=== PATIENT | male | born 1955 | race Caucasian/White ===

== ENCOUNTER 2020-08-06 13:02 | Emergency (ER) | payer MEDICAID ==
[~2020-08-06] VITALS: Ht 170.2 cm; Wt 68.0 kg
[2020-08-06] MEDS ORDERED: NORVASC 2.5 MG2.5 M1 PO (13:17)
[2020-08-06] MEDS ORDERED: ASA81BEC PO (13:17)
[2020-08-06] MEDS ORDERED: PLAVIX 75 MG TA75 MG PO (13:18)
[2020-08-06] MEDS ORDERED: FUROSEMIDE 40 M40 MG PO (13:18)
[2020-08-06] MEDS ORDERED: ATORVASTATIN CA80 MG PO (13:18)
[2020-08-06] MEDS ORDERED: CARVEDILOL12.5 MG PO (13:18)
[2020-08-06] MEDS ORDERED: COZAAR 25 MG TA25 M1 PO (13:19)
[2020-08-06] MEDS ORDERED: MIRALAX119 GM PO (13:20)
[2020-08-06] MEDS ORDERED: FLOMAX0.4 MG PO (13:20)
[2020-08-06] MEDS ORDERED: PROAIR HFA8.5 GM INH (13:21)
[2020-08-06] MEDS ORDERED: NORCO 5-325 TA1 EAC2 PO (13:54)
[2020-08-06] MEDS ORDERED: PREDNISONE50 MG PO (13:54)
[2020-08-06] MEDS ORDERED: FLEXERIL PO (13:54)
[2020-08-06 14:20] VITALS: BP 143/46
== END 2020-08-06 14:23 ==
LOC: M.ERS 13:02
DX: M54.31 Sciatica, right side (principal)

== ENCOUNTER 2020-08-10 17:11 | Emergency (ER) | payer MEDICAID ==
[~2020-08-10] VITALS: Ht 167.6 cm; Wt 70.3 kg
[~2020-08-10 17:11] MED LIST: ASA81BEC PO; ATORVASTATIN CA80 MG PO; CARVEDILOL12.5 MG PO; COZAAR 25 MG TA25 M1 PO; FLEXERIL PO; FLOMAX0.4 MG PO; FUROSEMIDE 40 M40 MG PO; MIRALAX119 GM PO; NORCO 5-325 TA1 EAC2 PO; NORVASC 2.5 MG2.5 M1 PO; PLAVIX 75 MG TA75 MG PO; PREDNISONE50 MG PO; PROAIR HFA8.5 GM INH
[2020-08-10] MEDS ORDERED: PREDNISONE 10 M10 MG PO (18:07)
[2020-08-10] MEDS ORDERED: FLEXERIL PO (18:07)
[2020-08-10 18:40] VITALS: BP 105/69
== END 2020-08-10 18:40 | disposition home or self-care (01) ==
LOC: M.ERS 17:11
DX: M54.31 Sciatica, right side (principal); Z79.82 Long term (current) use of aspirin; Z79.899 Other long term (current) drug therapy

== ENCOUNTER 2021-04-04 18:20 | Inpatient (IN) | payer MEDICAID ==
[~2021-04-04] VITALS: Ht 167.6 cm; Wt 70.3 kg
--- NOTE | ~2021-04-04 | PROC ---
[facility] [address] [place] [address] PROCEDURE REPORT Name: LUIS FERNANDO MAYS Room: [address] IN M.R.#: [id number] Admission: 04/04/21 Attend Phys: Alethea Roche Discharge: 04/09/21 Date of : 59 Report #: [id number] THIS REPORT FOR: cc: FAM - No family physician/PCP FAM - No family physician/PCP [facility],Medical Records Staff ~ For GI report, please see the Provation report in Perceptive 7 content. By: 1007Medical Records Staff RUTHIE /GRADY
[~2021-04-04 18:20] MED LIST changes: +PREDNISONE 10 M10 MG PO
[2021-04-04 19:37] VITALS: BP 146/83
[2021-04-04 20:29] LABS: ABSOLUTE BASOPHILS 0.1 thou/uL (0.0-0.2); ABSOLUTE EOSINOPHILS 0.2 thou/uL (0.0-0.7); ABSOLUTE MONOCYTES 0.5 thou/uL (0.0-1.2); ABSOLUTE NEUTROPHILS 3.9 thou/uL (1.6-8.1); BASOPHILS 2.6 %; EOSINOPHILS 3.4 %; HEMATOCRIT 26.6 % (42.0-52.0); HEMOGLOBIN 7.8 gm/dL (14.0-18.0); LYMPHOCYTES 16.8 %; MCH 19.7 pg (26.0-34.0); MCHC 29.3 g/dL (28.0-37.0); MCV 67.3 fL (80.0-100.0); MONOCYTES 8.6 %; MPV 6.8 fl. (7.2-11.1); NUCLEATED RBCS 0 /100WBC; PLATELET COUNT* 218 thou/uL (150-400); POLYS 68.6 %; RBC 3.95 mil/uL (4.50-6.00); RDW-CV 19.9 % (10.5-14.5); WBC 5.7 thou/uL (4.0-11.0)
[2021-04-04 20:45] LABS: ALBUMIN 4.3 g/dL (3.4-5.0); CALCIUM 8.5 mg/dL (8.5-10.1); CREATININE 1.9 mg/dL (0.6-1.3); POTASSIUM 3.8 mmol/L (3.5-5.1); TOTAL BILIRUBIN 0.3 mg/dL (<0.1-1.0); TOTAL PROTEIN 7.7 g/dL (6.4-8.2)
[2021-04-04 21:20] LABS: ANISOCYTOSIS 2+; HYPOCHROMASIA 2+; POIKILOCYTOSIS 1+; POLYCHROMASIA 1+
[2021-04-04 21:21] LABS: MICROCYTES 2+; OVALOCYTES 1+; SCHISTOCYTES 1+; TEARDROPS Occasional
[2021-04-04 21:37] LABS: APTT 26.2 Seconds (25.0-31.3); PROTIME 10.9 Seconds (9.20-11.50)
[2021-04-04 22:31] VITALS: BP 136/60
[2021-04-04 23:00] VITALS: BP 152/77
[2021-04-05 04:00] VITALS: BP 148/75
--- NOTE | 2021-04-05 06:57 | NUR ---
RECEIVED REPORT FROM ISABELL MCDERMOTT. PT TRANSFERRED TO 213. PT A&OX4. FORGETFUL. VSS. PHYSICAL ASSESSMENT COMPLETED AND CHARTED. PT COMPLAINED OF SOB/UNABLE TO TAKE DEEP BREATHS-PLACED ON O2 AT 2LNC. PT DENIES ANY PAIN. PT TRACING SR/PVC ON TELE. CALL LIGHT WITHIN REACH.
[2021-04-05 07:45] VITALS: BP 123/73
--- NOTE | 2021-04-05 10:07 | NUR ---
ASSUMED CARE OF PT AT 0730. PT RESTING IN BED WAITING FOR BREAKFAST. A&0X4, DENIES ANY PAIN OR SHORTNESS OF BREATH AT REST. TRACING SR ON THE SLOT SUPERVISOR. ON 2L NC SAT 99%. PT STATES HE HAS SHORTNESS OF BREATH WITH EXERTION. IVF. PT UP AD LORENE IN ROOM. HOME MEDICATIONS RESTARTED AND GIVEN PER EMAR. GI CONSULT IN PLACE FOR ANEMIA WORK UP. PT GOAL FOR TODAY IS GI CONSULT IN PLACE AND INCREASE ACTIVITY. AM ASSESSMENT CHARTED MEDICATIONS PER JAN. PT REPOSITIONS SELF. HOURLY ROUNDING OBSERVED. BED IN LOW POSITION. CALL LIGHT WITHIN REACH. WILL CONTINUE PLAN OF CARE.
--- NOTE | 2021-04-05 10:53 | EKG ---
[place] [address] ELECTROCARDIOGRAM REPORT Name: DAVONLUIS FERNANDO Arellano Room: [address] ADM IN [facility].#: [id number] Admission: 04/04/21 Attend Phys: Renetta Sanchez Discharge: Date of : 59 Date of Service: 04/04/212228 Report #: [id number] THIS REPORT FOR: //name// [facility] ED Test Date: 2021-04-04 Test Time: 22:29:47 Pat Name: LUIS FERNANDO MAYS Department: Room: [facility] Gender: M Temp Recruiter: TOM : 1955 Requested By: Marylin Crane Order Number: [id number] MD: Lenard Joya Measurements Intervals [place] Rate: 68 P: 64 KS: 153 QRS: 42 QRSD: 92 T: 61 QT: 426 QTc: 454 Interpretive Statements Sinus rhythm No previous ECG available for comparison Electronically Signed On 04-05-2021 10:52:51 CDT by Lenard Joya [email or web address] <ELECTRONICALLY SIGNED> By: Lenard Joya MD, [facility] 04/05/21 1052 28 Lenard Joya MD, [facility] /EPI
[2021-04-05 13:38] VITALS: BP 138/64
--- NOTE | 2021-04-05 14:14 | NUR ---
Pt is A&O. Resides at [facility] and plans to return at in. Independent. No DME, Pt does have an inhaler. No hx of HH or SNF. Supportive brother. GI completing work up. Med surg status. No needs at in.
[2021-04-05 18:25] VITALS: BP 149/70
[2021-04-05 20:00] VITALS: BP 128/67
--- NOTE | 2021-04-05 23:30 | NUR ---
ASSUMED CARE OF PT AFTER REPORT AT 1930. PT A&OX4 . VSS. PHYSICAL ASSESSMENT COMPLETED AND CHARTED. PT ON RA. PT ON MEDSURG STATUS. PT UPADLIB TO RESTROOM. PT DENIES ANY PAIN. CALL LIGHT WITHIN REACH. TRANSFERRED PT VIA WHEELCHAIR WITH BELONGINGS TO 102 AT 2345.
[2021-04-05 23:41] VITALS: BP 151/63
--- NOTE | 2021-04-06 04:05 | NUR ---
PT TRANSFERRED FROM [facility] AT 2345. A&O, VSS ON RA. NO C/O PAIN. BREATHING TREATMENT Q4H. UP INDEPENDENTLY IN THE ROOM. CALL LIGHT WITHIN REACH. PT SLEPT OFF AND ON. WILL CONTINUE TO MONITOR.
[2021-04-06 05:48] LABS: ABSOLUTE BASOPHILS 0.1 thou/uL (0.0-0.2); ABSOLUTE EOSINOPHILS 0.2 thou/uL (0.0-0.7); ABSOLUTE MONOCYTES 0.5 thou/uL (0.0-1.2); ABSOLUTE NEUTROPHILS 4.3 thou/uL (1.6-8.1); CALCIUM 8.6 mg/dL (8.5-10.1); CREATININE 1.7 mg/dL (0.6-1.3); EOSINOPHILS 3.3 %; HEMATOCRIT 26.2 % (42.0-52.0); HEMOGLOBIN 7.5 gm/dL (14.0-18.0); LYMPHOCYTES 16.7 %; MCH 19.4 pg (26.0-34.0); MCHC 28.8 g/dL (28.0-37.0); MCV 67.4 fL (80.0-100.0); MONOCYTES 7.9 %; MPV 7.8 fl. (7.2-11.1); NUCLEATED RBCS 0 /100WBC; PLATELET COUNT* 212 thou/uL (150-400); POLYS 70.1 %; POTASSIUM 3.7 mmol/L (3.5-5.1); RBC 3.88 mil/uL (4.50-6.00); RDW-CV 20.1 % (10.5-14.5); WBC 6.2 thou/uL (4.0-11.0)
[2021-04-06 06:32] LABS: PLATELET ESTIMATE ADEQUATE
[2021-04-06 06:33] LABS: HYPOCHROMASIA 3+; MICROCYTES 3+; OVALOCYTES 1+
[2021-04-06 06:34] LABS: ANISOCYTOSIS 2+
--- NOTE | 2021-04-06 06:42 | NUR ---
INFORMED PT BROTHER JOSELUIS REGARDING TRANSFER TO RM 102 THIS AM.
[2021-04-06 10:59] VITALS: BP 96/54
[2021-04-06 16:00] VITALS: BP 134/64
[2021-04-06 19:32] VITALS: BP 122/59
--- NOTE | 2021-04-07 04:38 | NUR ---
PATIENT HAS REMAINED ALERT AND ORIENTED X 4 THROUGHOUT THE SHIFT AND RESTING QUIETLY ON HOURLY ROUNDS. UP INDEPENDENTLY IN ROOM. STATED HE FEELS BREATHING TREATMENTS ARE HELPING. DENIES PAIN OR NAUSEA. VITAL SIGNS STABLE. CONTINUE TO MONITOR.
[2021-04-07 05:42] LABS: ABSOLUTE BASOPHILS 0.1 thou/uL (0.0-0.2); ABSOLUTE EOSINOPHILS 0.2 thou/uL (0.0-0.7); ABSOLUTE LYMPHOCYTES 1.1 thou/uL (0.8-5.3); ABSOLUTE MONOCYTES 0.5 thou/uL (0.0-1.2); ABSOLUTE NEUTROPHILS 4.1 thou/uL (1.6-8.1); BASOPHILS 2.2 %; EOSINOPHILS 3.7 %; HEMATOCRIT 24.8 % (42.0-52.0); HEMOGLOBIN 7.3 gm/dL (14.0-18.0); LYMPHOCYTES 18.6 %; MCH 19.9 pg (26.0-34.0); MCHC 29.3 g/dL (28.0-37.0); MONOCYTES 8.3 %; MPV 8.5 fl. (7.2-11.1); NUCLEATED RBCS 0 /100WBC; PLATELET COUNT* 213 thou/uL (150-400); POLYS 67.2 %; RBC 3.65 mil/uL (4.50-6.00); RDW-CV 20.1 % (10.5-14.5); WBC 6.1 thou/uL (4.0-11.0)
[2021-04-07 05:53] LABS: ALBUMIN 3.7 g/dL (3.4-5.0); CALCIUM 8.2 mg/dL (8.5-10.1); CREATININE 1.6 mg/dL (0.6-1.3); TOTAL BILIRUBIN 0.4 mg/dL (<0.1-1.0); TOTAL PROTEIN 6.9 g/dL (6.4-8.2)
[2021-04-07 07:39] LABS: ANISOCYTOSIS 2+; MICROCYTES 2+
[2021-04-07 08:30] VITALS: BP 142/69
[2021-04-07 16:00] VITALS: BP 137/62
--- NOTE | 2021-04-07 18:18 | NUR ---
PT A&Ox4. AD LORENE. VITALS STABLE. IV PATENT. CLEAR LIQUID DIET. COMPLETED BOWEL PREP. NPO AT MIDNIGHT FOR EGD/COLONOSCOPY. WILL CONTINUE TO MONITOR.
[2021-04-07 20:30] VITALS: BP 129/59
--- NOTE | 2021-04-08 04:26 | NUR ---
PATIENT HAS REMAINED ALERT AND ORIENTED X 4 THROUGHOUT THE SHIFT. UP INDEPENDENTLY TO BR. BOWEL PREP IN PROGRESS. PATIENT REPORTING BOWEL OUTPUT NOW WATERY AND TRANSLUCENT. DENIES NAUSEA OR PAIN. CONTINUES TO STATE THAT THE BREATHING TREATMENTS HELP HIM FEEL HE IS TAKING GOOD DEEP BREATHS. NPO AT MIDNIGHT EXCEPT PLANNED MEDS. CONSENTS FOR EGD AND COLONOSCOPY HAVE BEEN SIGNED. VITAL SIGNS STABLE. CONTINUE TO MONITOR.
[2021-04-08 05:20] LABS: ABSOLUTE BASOPHILS 0.1 thou/uL (0.0-0.2); ABSOLUTE EOSINOPHILS 0.2 thou/uL (0.0-0.7); ABSOLUTE LYMPHOCYTES 0.9 thou/uL (0.8-5.3); ABSOLUTE MONOCYTES 0.4 thou/uL (0.0-1.2); ABSOLUTE NEUTROPHILS 4.2 thou/uL (1.6-8.1); BASOPHILS 1.8 %; EOSINOPHILS 4.1 %; HEMATOCRIT 26.2 % (42.0-52.0); HEMOGLOBIN 7.7 gm/dL (14.0-18.0); LYMPHOCYTES 15.6 %; MCHC 29.2 g/dL (28.0-37.0); MCV 68.4 fL (80.0-100.0); MONOCYTES 6.9 %; MPV 7.4 fl. (7.2-11.1); NUCLEATED RBCS 0 /100WBC; PLATELET COUNT* 220 thou/uL (150-400); POLYS 71.6 %; RBC 3.84 mil/uL (4.50-6.00); RDW-CV 19.8 % (10.5-14.5); WBC 5.9 thou/uL (4.0-11.0)
[2021-04-08 05:26] LABS: CALCIUM 8.7 mg/dL (8.5-10.1); CREATININE 1.5 mg/dL (0.6-1.3); POTASSIUM 3.8 mmol/L (3.5-5.1)
[2021-04-08 07:30] LABS: PLATELET ESTIMATE ADEQUATE
[2021-04-08 07:33] LABS: HYPOCHROMASIA 2+; MICROCYTES 2+
[2021-04-08 07:34] LABS: ANISOCYTOSIS 2+; OVALOCYTES 2+; POIKILOCYTOSIS 2+
[2021-04-08 08:06] VITALS: BP 142/65
--- NOTE | 2021-04-08 13:46 | NUR ---
Anticipate dc today or tomorrow back to [facility]. GI planning scope today.
[2021-04-08 14:47] VITALS: BP 128/67
--- NOTE | 2021-04-08 17:37 | NUR ---
PT A&OX4 VSS. EGD/COLONOSCOPY THIS SHIFT. HEART HEALTHY DIET POST PROCEDURE PER GI. NPO AFTER MIDNIGHT TONIGHT FOR PROCEDURE TOMORROW. IV TO RFA PATENT, DRESSING C/D/I. PT REMAINS ON ROOM AIR. BROTHER UPDATED AT NURSES STATION. PT RESTS IN ROOM WITH CALL IGHT IN REACH. WILL CONTINUE TO MONITOR
[2021-04-08 20:27] VITALS: BP 144/64
--- NOTE | 2021-04-09 05:21 | NUR ---
PATIENT HAS SLEPT WELL THROUGHOUT THE NIGHT. VSS ON RA. NO C/O PAIN. MEDICATIONS GIVEN ORDERED AND CHARTED. PATIENTS BROTHER CALLED AND NURSE SPOKE WITH HIM REGARDING PATIENTS CARE. PATIENTS BROTHER HAS NOT SPOKEN WITH DR. KENNY REGARDING EGD/COLONOSCOPY THAT WERE PERFORMED AND HE INFORMED NURSE THAT HE WAS DURABLE POWER OF SAMPLE PREPARATION SUPERVISOR FOR THE PATIENT. PATIENT HAS REMAINED NPO SINCE MIDNIGHT D/T SCHEDULED BOWEL FOLLOW THROUGH TODAY. IV IN RIGHT FOREARM-SL. PATIENT INSTRUCTED TO USE CALL LIGHT WHEN NEEDING ASSISTANCE. HOURLY ROUNDS MADE. WILL CONTINUE WITH PLAN OF CARE AND NURSING TO MONITOR.
[2021-04-09] MEDS ORDERED: IRON325 M1 PO (07:28)
[2021-04-09 07:30] VITALS: BP 131/70
[2021-04-09 12:55] VITALS: BP 131/70
--- NOTE | 2021-04-09 15:35 | NUR ---
PT A&OX4 VSS. FORGETFUL AT TIMES. PT NPO SINCE MIDNIGHT AT TIME OF ASSESSMENT THIS AM. DR KENNY UPDATED PT BROTHER JOSELUIS BY PHONE REQUESTED BY FAMILY MEMBER. IV TO RFA PATENT, LINE DC'D PRIOR TO PT LEAVING UNIT THIS AFTERNOON. PT REMAINS ON ROOM AIR, 96% O2 SAT. PT UP AD LORENE, GAIT STEADY. PT DRESSED INDEPENDENTLY. PT BROTHER INCLUDED BY PHONE AT TIME OF DC INSTRUCITONS. PT LEFT UNIT IN WHEELCHAIR WITH NURSING STAFF.
--- NOTE | 2021-04-10 13:09 | PATH ---
[facility] [address] [place] [address] PATHOLOGY RPT PROCEDURE Name: CARLOS MAYS Room: [address] IN M.R.#: [id number] Admission: 04/04/21 Date of : 59 Discharge: 04/09/21 Report #: [id number] Path Case #: [id number] [facility] Accession Number: [id number] . 01 Material submitted: . small bowel - SMALL BOWEL BIOPSY FOR ANEMIA . 01 Clinical history: . ACUTE KIDNEY INJURY,ANEMIA EGD AND COLONOSCOPY SMALL HIATAL HERNIA DIVERTICULOSIS HEMORRHOIDS . 02 Diagnosis: Small bowel biopsy: - Normal small intestinal mucosa. (SHIRA:tom; 04/10/2021) S 04/10/2021 1050 Local . 02 Electronically signed: . Telly Lord MD, Pathologist NPI- [id number] . 01 Gross description: . The specimen is received in formalin, labeled "Carlos Mays, small bowel biopsy". Received are two segments of pale horn tissue measuring 0.4 and 0.5 cm in maximum dimensions. The specimen is submitted entirely in cassette A1. (CAA; 04/09/2021) QAC/QAC 04/09/2021 1327 Local . 02 Pathologist provided ICD-10: Z12.11, K44.9, K57.90, K64.9 . 02 CPT . 729239 Specimen Comment: A courtesy copy of this report has been sent to [phone] Specimen Comment: Report sent to / DR SOUTH Performed at: [address], [place], [place] [id number] MD Eugene Banerjee MD Phone: [phone] Performed at: 02 [facility] [address], [place], [place] [id number] MD Telly Lord MD Phone: [phone]
== END 2021-04-09 15:42 | disposition home or self-care (01) | DRG 684 ==
LOC: M.ERS 18:20 → M.TBA-ER 20:59 → M.2W 22:43 → M.ORTHSURG 04-05 23:45
PROVIDERS: Internal Medicine; Internal Medicine Gastroenterology; Physician Assistant; ADMIT Internal Medicine; ATTEND Internal Medicine
PROC: 0DJ08ZZ Inspection of Upper Intestinal Tract, Via Natural or Artificial Opening Endoscopic (ICD-10-PCS; principal; 2021-04-08)
PROC: 0DB88ZX Excision of Small Intestine, Via Natural or Artificial Opening Endoscopic, Diagnostic (ICD-10-PCS; principal; 2021-04-08)
DX: N17.9 Acute kidney failure, unspecified (principal); D64.9 Anemia, unspecified; K44.9 Diaphragmatic hernia without obstruction or gangrene; K64.4 Residual hemorrhoidal skin tags; K57.30 Diverticulosis of large intestine without perforation or abscess without bleeding; N18.9 Chronic kidney disease, unspecified; Z20.822 Contact with and (suspected) exposure to COVID-19; Z86.73 Personal history of transient ischemic attack (TIA), and cerebral infarction without residual deficits; Z79.82 Long term (current) use of aspirin; Z79.01 Long term (current) use of anticoagulants; Z79.899 Other long term (current) drug therapy; Z87.891 Personal history of nicotine dependence

== ENCOUNTER 2021-07-10 09:44 | Emergency (ER) | payer MEDICAID ==
[~2021-07-10] VITALS: Ht 167.6 cm; Wt 70.3 kg
[~2021-07-10 09:44] MED LIST changes: +IRON325 M1 PO
[2021-07-10 11:09] VITALS: BP 151/71
== END 2021-07-10 11:09 | disposition home or self-care (01) ==
LOC: M.ERS 09:44
DX: Z00.8 Encounter for other general examination (principal); Z79.899 Other long term (current) drug therapy; Z98.890 Other specified postprocedural states